=== PATIENT | male | born 1975 | race African-American/Black ===

== ENCOUNTER 2018-10-04 16:03 | Emergency (ER) | payer MEDICAID, OTHER ==
[~2018-10-04] VITALS: Ht 170.2 cm; Wt 79.5 kg
[2018-10-04 16:09] VITALS: Ht 170.2 cm; Wt 79.5 kg
[2018-10-04] MEDS ORDERED: KETOROLAC 15 MG INJ IV STA (16:27)
[2018-10-04] MEDS ORDERED: ACETAMINOPHEN 325 MG TAB PO ONE (16:30)
--- NOTE | 2018-10-04 16:56 | ERD ---
ER Documentation Chief Complaint Chief Complaint bilateral leg cramping X 2 days, possible psych (paranoia) HPI This is a 43-year-old male with a reported past medical history of schizophrenia noncompliant on Seroquel who is presenting with 2 days of waxing and waning mid lower back pain and cramping to the legs bilaterally. The patient does not endorse any alleviating or exacerbating factors. He does not endorse any trauma or injury. He reports that he has a history of pinched nerves in his lower legs and that his symptoms today are common for him. The patient is ambulatory without difficulty. He does not appear to be in any pain. The patient was looking around in a paranoid manner during the history taking process. The patient reports that he is supposed to be on Seroquel, but he has not been taking it since he ran out. He does not endorse any visual hallucinations. The patient reports that sometimes he has auditory hallucinations, but they are benign and he does not endorse any auditory hallucinations currently. He denies any suicidal or homicidal ideations. He is open to taking Seroquel today. The patient denies feeling sick recently. The patient denies fever or chills. The patient has had no headache or vision changes. The patient does not endorse neck or back pain. The patient denies lightheadedness or dizziness. The patient has had no chest pain or trouble breathing. The patient denies nausea or vomiting. The patient denies abdominal pain. The patient denies changes to bowel movements or urination. The patient has had no focal deficits. The patient has had no weakness or numbness or tingling to the face or extremities. ROS All systems reviewed and are negative except as per history of present illness. Medications Home Meds Active Scripts Quetiapine Fumarate* (Seroquel*) 25 Mg Tablet, 25 MG PO DAILY, #30 TAB Prov:NADIR PENA MD 10/04/18 Cephalexin* (Keflex*) 500 Mg Capsule, 500 MG PO BID for 10 Days, CAP Prov:NADIR PENA MD 10/04/18 Reported Medications Quetiapine Fumarate* (Seroquel*) 100 Mg Tablet, 100 MG PO HS, #30 TAB 10/04/18 Allergies Allergies: Coded Allergies: No Known Allergy (Unverified , 10/04/18) PMhx/Soc Medical and Surgical Hx: pt denies Surgical Hx History of Surgery: No Anesthesia Reaction: No Hx Neurological Disorder: No Hx Respiratory Disorders: No Hx Cardiac Disorders: No Hx Psychiatric Problems: Yes (Schizophrenia) Hx Miscellaneous Medical Probl: No Hx Alcohol Use: Yes (Occasional) Hx Substance Use: Yes (Marijuana) Hx Tobacco Use: No FmHx Family History: No diabetes Physical Exam Vitals Vital Signs Date Temp Pulse Resp B/P (MAP) Pulse Ox O2 O2 Flow FiO2 Time Delivery Rate 10/04/18 100.2 16:43 10/04/18 100.2 140 18 161/96 97 16:09 (117) Physical Exam Const: No apparent distress, well-developed, well-nourished Head: Normocephalic, Atraumatic Eyes: Normal Conjunctiva. Extraocular movements intact. Pupils equal, round and reactive to light ENT: Normal External Ears, Nose and Mouth. Neck: Full range of motion. No meningismus. Resp: Clear to auscultation bilaterally, No wheezes, rales or rhonchi Cardio: Regular rhythm. Tachycardia. No murmurs, rubs or gallops Abd: Soft, non tender, non distended. Normal bowel sounds Skin: No petechiae or rashes Back: No midline tenderness. No CVA tenderness Ext: No cyanosis, or edema Neur: Awake and alert, oriented 4. Cranial nerves intact. No facial droop. Normal strength, sensation and coordination. Psych: Paranoid affect. No active auditory or visual hallucinations. No suicidal or homicidal ideations. Result Diagram: 10/04/18 1633 10/04/18 1633 Results 24 hrs Laboratory Tests Test 10/04/18 16:33 10/04/18 16:34 White Blood Count 12.9 10^3/ul Red Blood Count 4.27 10^6/ul Hemoglobin 12.8 g/dl Hematocrit 39.6 % Mean Corpuscular Volume 92.7 fl Mean Corpuscular Hemoglobin 30.0 pg Mean Corpuscular Hemoglobin Concent 32.3 g/dl Red Cell Distribution Width 12.9 % Platelet Count 213 10^3/UL Mean Platelet Volume 10.5 fl Immature Granulocytes % 0.500 % Neutrophils % 92.6 % Lymphocytes % 2.9 % Monocytes % 3.8 % Eosinophils % 0.0 % Basophils % 0.2 % Nucleated Red Blood Cells % 0.0 /100WBC Immature Granulocytes # 0.060 10^3/ul Neutrophils # 12.0 10^3/ul Lymphocytes # 0.4 10^3/ul Monocytes # 0.5 10^3/ul Eosinophils # 0.0 10^3/ul Basophils # 0.0 10^3/ul Nucleated Red Blood Cells # 0.0 10^3/ul Prothrombin Time 12.9 Sec Prothrombin Time Ratio 1.0 INR International Normalized Ratio 0.96 Activated Partial Thromboplast Time 23.8 Sec Sodium Level 143 mmol/L Potassium Level 4.7 mmol/L Chloride Level 101 mmol/L Carbon Dioxide Level 22 mmol/L Anion Gap 20 Blood Urea Nitrogen 34 mg/dl Creatinine 1.47 mg/dl Est Glomerular Filtrat Rate mL/min 52 mL/min Glucose Level 134 mg/dl Calcium Level 10.8 mg/dl Total Bilirubin 1.6 mg/dl Direct Bilirubin 0.00 mg/dl Indirect Bilirubin 1.6 mg/dl Aspartate Amino Transf (AST/SGOT) 98 IU/L Alanine Aminotransferase (ALT/SGPT) 31 IU/L Alkaline Phosphatase 116 IU/L Total Protein 9.3 g/dl Albumin 5.6 g/dl Globulin 3.70 g/dl Albumin/Globulin Ratio 1.51 Urine Color ASHLEY Urine Clarity CLOUDY Urine pH 5.0 Urine Specific [place] 1.028 Urine Ketones TRACE mg/dL Urine Nitrite NEGATIVE mg/dL Urine Bilirubin NEGATIVE mg/dL Urine Urobilinogen 1+ mg/dL Urine Leukocyte Esterase NEGATIVE Dionna/ul Urine Microscopic RBC 9 /HPF Urine Microscopic WBC 9 /HPF Urine Hyaline Casts MODERATE /HPF Urine Mucus MODERATE /HPF Urine Hemoglobin 3+ mg/dL Urine Glucose NEGATIVE mg/dL Urine Total Protein 3+ mg/dl Urine Opiates Screen Negative Urine Barbiturates Negative Urine Amphetamines Screen POSITIVE Urine Benzodiazepines Screen Negative Urine Cocaine Screen Negative Urine Cannabinoids Positive Current Medications Medications Dose Sig/Pino Start Time Status Last (Trade) Ordered Route PRN Stop Time Admin Dose Reason Admin Sodium 2,400 ml BOLUS OVER 2 10/04/18 DC Chloride HOURS STAT 16:14 10/04/18 (NS) IV* 16:19 Ketorolac 15 mg ONCE STAT 10/04/18 DC 10/04/18 Tromethamine IV 16:27 10/04/18 16:42 (Toradol) 16:29 650 mg ONCE ONCE 10/04/18 DC 10/04/18 Acetaminophen PO 16:30 10/04/18 16:43 (Tylenol 16:31 Tab) Quetiapine 25 mg ONCE ONCE 10/04/18 DC 10/04/18 Fumarate PO 17:00 10/04/18 16:52 (Seroquel) 17:01 Lorazepam 1 mg ONCE ONCE 10/04/18 DC 10/04/18 (Ativan) PO 19:00 10/04/18 19:18 19:01 Procedures/MDM MDM The patient's presentation warrants further investigation. Previous medical records, if available, were reviewed. LABS The patient's laboratory testing was obtained and reviewed. No emergent treatment was required unless described below. CBC: Mild leukocytosis with shift, potentially concerning for an infection, but could be reactive secondary to his polysubstance abuse. Mild normocytic anemia, not emergent. Normal platelet count. Chemistry: No metabolic emergencies. No severe acidosis or alkalosis. Elev ated BUN and creatinine concerning for mild acute kidney injury and likely dehydration. Mildly elevated indirect hyperbilirubinemia, nonemergent. Mildly elevated AST, potentially reactive. PT/INR: No E/o significant coagulopathy Lactate: Patient refused Urine: E/o acute infection with hematuria Tox: E/o marijuana and methamphetamine. EKG EKG read by me: Rate/Rhythm: Sinus tachycardia at 130 bpm Intervals: Normal [place]: Normal Impression: Nonspecific repolarization changes without evidence of acute ischemia. Sinus tachycardia. IMAGING Imaging and Radiology interpretation reviewed. CXR FINDINGS: The cardiomediastinal silhouette is normal. The lungs are clear and costophrenic angles sharp. The osseous structures are grossly unremarkable. IMPRESSION: No radiographic evidence of acute cardiopulmonary disease. Electronically viewed and signed by .Chata Barksdale MD, on 10/04/2018 19:09 TREATMENT/DISPOSITION The patient presents primarily for chronic back pain and leg cramps. The patient's symptoms are not consistent with sciatica. I do not see evidence of a metabolic pathology. There is no evidence of trauma or injury. The patient did not fall. He is ambulatory without issue. I do not suspect cauda equina. The patient does not have symptoms concerning for DVT. The patient does endorse having pinched nerves versus neuropathy, which could also be the etiology of his symptoms, but this may be followed up in an outpatient setting. The patient does appear dehydrated clinically. He was offered IV fluids, but he requested that the IV be removed right after it was placed and refused the IV fluids. The patient was given Toradol IV prior to removal. The patient was also given Tylenol for discomfort. The patient did have an elevated temperature and was tachycardic. The patient was evaluated for possible infectious etiology of symptoms. A workup was completed. We attempted to provide the patient a sepsis bolus, but he declined as stated above. The patient was given antipyretics as stated above. I do not feel the patient is septic, and I do not feel the patient's symptoms warrant antibiotics at this time. Viral syndrome is possible. The patient's urine drug screen is also positive for sympathomimetics, which could lead to an elevated temperature and tachycardia. The patient has not been on his antipsychotic medications. I have low suspicion for malignant hyperthermia. The patient does have a history of paranoid schizophrenia, and he does appear paranoid today. He admits to being noncompliant with his Seroquel secondary to running out. He was given a dose of Seroquel in the emergency department and will be provided a prescription for this. The patient does not have suicidal or homicidal ideations. He does not have auditory or visual hallucinations. I do not feel that the patient is a danger to himself or others. I feel that the patient is stable for discharge from a psychiatric perspective. The patient is homeless and is requesting homeless services. A social work consult was placed. The social work lecturer is not in house, but she discussed the needs that need to be provided. The patient is clothed. He does not desire any food at this time. The patient's medication needs have been addressed. There is a homeless longterm, [facility], nearby that typically accepts patient's until 8:15 in the evening. The social work lecturer recommended providing transportation to this facility. We have provided this. According to the social work lecturer, we have complied with our homeless policy. Upon reevaluation of the patient, symptoms have improved. No emergent diagnoses were identified. At this time, I feel that the patient medically stable for discharge. The patient was instructed to follow-up with a primary care physician in 1-3 days. The patient will be given strict precautions with which to return to the emergency department. The patient's blood pressure was elevated at greater than 120/80 while in the emergency department. The patient was otherwise stable with no evidence of hypertensive urgency or emergency. The patient does not require admission for blood pressure control. I have discussed with the patient the risks of hypertension. I have instructed the patient to return to the ER for any new or worsening symptoms including chest pain, shortness of breath, headache, blurred vision, confusion, nausea, vomiting or LOC. I have advised the patient to follow up with the primary care physician for outpatient monitoring and treatment for hypertension in 1-3 days. Disclaimer: Inadvertent spelling and grammatical errors are likely due to EHR/dictation software use and do not reflect on the overall quality of patient care. Note that the electronic time recorded on this note does not necessarily reflect the actual time of the patient encounter. Departure Diagnosis: Primary Impression: Chronic leg pain Laterality: bilateral Qualified Codes: M79.604 - Pain in right leg; M79.605 - Pain in left leg; G89.29 - Other chronic pain Additional Impressions: Chronic back pain Back pain location: low back pain Back pain laterality: midline Sciatica presence: without sciatica Qualified Codes: M54.5 - Low back pain; G89.29 - Other chronic pain History of paranoid schizophrenia Noncompliance with medications Methamphetamine abuse Marijuana abuse Dehydration Tachycardia UTI (urinary tract infection) Urinary tract infection type: acute cystitis Hematuria presence: with hematuria Qualified Codes: N30.01 - Acute cystitis with hematuria Acute kidney injury Transaminitis Leukocytosis Leukocytosis type: unspecified Qualified Codes: D72.829 - Elevated white blood cell count, unspecified Normocytic anemia Condition: Stable NADIR PENA MD Oct 04, 2018 16:45
[2018-10-04] MEDS ORDERED: QUETIAPINE 25 MG TAB PO ONE (17:00)
[2018-10-04] MEDS: SODIUM CHLORIDE 0.9% 1L BAG IV* STA ×2 (17:06→17:07)
[2018-10-04] MEDS ORDERED: LORAZEPAM 1 MG TAB PO ONE (19:00)
[2018-10-04] MEDS ORDERED: QUET100T PO (19:14)
[2018-10-04] MEDS ORDERED: QUET25TA PO (19:38)
[2018-10-04] MEDS ORDERED: CEPH-443 PO (19:38)
[2018-10-04 20:06] VITALS: BP 146/96; PULSE 76; RESP 17
== END 2018-10-04 20:02 | disposition home or self-care (01) ==
LOC: E/R 16:03
DX: M79.604 Pain in right leg (principal); M79.605 Pain in left leg; M54.5 Low back pain; F15.10 Other stimulant abuse, uncomplicated; F12.10 Cannabis abuse, uncomplicated; E86.0 Dehydration; R00.0 Tachycardia, unspecified; N30.01 Acute cystitis with hematuria; D72.829 Elevated white blood cell count, unspecified; N17.9 Acute kidney failure, unspecified; D64.9 Anemia, unspecified; R74.0 Nonspecific elevation of levels of transaminase and lactic acid dehydrogenase [LDH]; Z91.14 Patient's other noncompliance with medication regimen; Z86.59 Personal history of other mental and behavioral disorders
CPT/HCPCS: 36415; 71045; 80053; 80307; 81001; 85025; 85610; 85730; 87400; 93005; 96374; J1885; J7030; Z7502; Z7610